=== PATIENT | male | born 2000 | race Caucasian/White ===

== ENCOUNTER 2020-03-17 03:46 | Emergency (ER) | payer OTHER, SELFPAY ==
--- NOTE | ~2020-03-17 | XR_ITS ---
XR chest 2V 03/17/2020 04:57 Indication: Shortness of breath Procedure: 2 view chest Comparison: No prior studies for comparison. Findings: Left lower lobe airspace disease, compatible with pneumonia. Cardiomegaly. Status post medi an sternotomy. Right lung is clear. No pleural effusion or pneumothorax. No acute osseous abnormality . Impression: 1: Left lower lobe airspace disease, compatible with pneumonia. 2: Cardiomegaly. Reviewed, dictated and finalized at location A. Impression: 1: Left lower lobe airspace disease, compatible with pneumonia. 2: Cardiomegaly.
[2020-03-17 03:49] VITALS: BP 140/67; PULSE 107; RESP 16; TEMP 36.4; O2SAT 100
--- NOTE | 2020-03-17 04:01 | ED.ANXIETY ---
HPI - Anxiety General Chief Complaint: Anxiety Stated Complaint: anxiety attack Time Seen by Provider: 03/17/20 04:01 History of Present Illness HPI narrative: 19 yo male with a h/o congenital aortic stenosis s/p repair presents to the ED for anxiety. History obtianed from the patient and his mother. She reports that he is very anxious and depressed. He reports that he always feels fatigued. Even walking accross the room makes him feel like he needs rest. Despite that whenever he does lie down his heart begins to race and he has to get up again. He has intermittent chest pain and SOB. He has a poor appetite. He saw his PCP yesterday and was prescribed prozac. He was feeling worse tonight than usual. Related Data Home Medications Medication Instructions Recorded Confirmed albuterol sulfate INHALATION QID 03/17/20 amlodipine 10 mg PO DAILY 03/17/20 fluoxetine 10 mg PO DAILY 03/17/20 omeprazole 40 mg PO DAILY 03/17/20 Allergies Allergy/AdvReac Type Severity Reaction Status Date / Time No Known Allergies Allergy Mild Verified 03/17/20 03:53 Review of Systems Review of Systems: All systems reviewed & are unremarkable except as noted in HPI and below Constitutional: Constitutional: Reports fatigue and Denies fever(s) ENT: Denies dizziness Cardiovascular: Cardiovascular: Reports chest pain and Reports rapid heart rate Respiratory: Respiratory: Reports cough and Reports dyspnea Gastrointestinal: Gastrointestinal: Denies abdominal pain and Denies nausea Neurologic: Denies dizziness and Denies weakness Psychiatric: Psychiatric: Reports anxiety and Reports depression PMFSH Past Medical History Medical History (Updated 03/18/20 @ 16:02 by Jesse Mata MD) Congenital aortic stenosis Social History Social History (Updated 03/18/20 @ 15:55 by Jesse Mata MD) Living arrangements: with family Exam Const: General: no acute distress, alert and ill appearing chronically Nutritional Appearance: well nourished Orientation/consciousness: patient oriented x3 HENMT: Head: normal to inspection Chest: Chest palpation & inspection: normal inspection of the chest Resp: Effort & Inspection: normal respiratory effort Auscultation: crackles on the left in the lower lung zhu Cardio: Rate: tachycardic Rhythm: regular rhythm GI: GI Palp: Yes Soft to palpation and No Tenderness to palpation present (GI) Skin: General skin exam: pallor Neuro: General: patient oriented x3, moves all extremities and no focal motor deficits Speech: normal speech Extrem: General: edema bilateral (2+ lower leg) Course Vital Signs Vital signs: Vital Signs Temperature 36.4 C L 03/17/20 03:49 Pulse Rate 107 H 03/17/20 03:49 Respiratory Rate 16 03/17/20 03:49 Blood Pressure 140/67 03/17/20 03:49 Pulse Oximetry 100 03/17/20 03:49 Temperature 36.4 C L 03/17/20 03:49 Pulse Rate 103 H 03/17/20 06:30 Respiratory Rate 35 H 03/17/20 06:30 Blood Pressure 128/64 03/17/20 06:30 Pulse Oximetry 100 03/17/20 06:30 MDM - Anxiety MDM Narrative Medical decision making narrative: History and physical concerning for a cardiac issue. Labs confirm this. Additionally he has a very elevated WBC count and hyponatremia. [facility]anfer arranged to [facility] his heart surgeon is. Lab Data Attestation: I reviewed the patient's lab results. Result diagrams: 03/17/20 04:40 03/17/20 04:40 Labs: Lab Results 03/17/20 03/17/20 03/17/20 Range/Units 04:40 04:40 04:40 WBC 17.3 H (4.5-10.0) K/mm3 RBC 5.18 (4.6-6.20) M/mm3 Hgb 14.9 (14.0-18.0) g/dL Hct 44.2 (42.0-52.0) % MCV 85.3 (80-100) fl MCH 28.8 (26-34) pg MCHC 33.7 (32-36) g/dl RDW 13.9 (11.5-14.5) % Plt Count 434 H (150-375) k/mm3 MPV 11.3 H (7.4-10.4) fl Immature Gran % (Auto) 0.5 (0-0.5) % Neut % (Auto) 75.9 H (45.5-73.1) % Lymph % (Auto) 14.0 L
--- NOTE | 2020-03-17 04:14 | ECG_ITS ---
Measurements Intervals [place] Rate: 102 P: 59 [place]: 159 QRS: 86 QRSD: 162 T: 263 QT: 392 QTc: 511 Interpretive Statements SINUS TACHYCARDIA LEFT BUNDLE BRANCH BLOCK ABNORMAL ECG Electronically Signed On 03-17-2020 7:04:53 CDT by John Packer D.O.
[2020-03-17 04:48] VITALS: BP 119/64; PULSE 104; RESP 27; O2SAT 98
[2020-03-17 04:51] LABS: Basophils Percent Auto 0.2 % (0.2-1.2); Eosinophils Percent Auto 0.1 % (0-4.4); Hematocrit 44.2 % (42.0-52.0); Hemoglobin 14.9 g/dL (14.0-18.0); Immature Granulocyte Absolute 0.09 K/mm3 (0.00-0.031); Immature Granulocyte Percent A 0.5 % (0-0.5); Lymphocytes Absolute Auto 2.43 K/mm3 (0.9-3.2); Mean Corpuscular HGB Conc 33.7 g/dl (32-36); Mean Corpuscular Hemoglobin 28.8 pg (26-34); Mean Corpuscular Volume 85.3 fl (80-100); Mean Platelet Volume 11.3 fl (7.4-10.4); Monocytes Absolute Auto 1.6 K/mm3 (0.1-0.6); Monocytes Percent Auto 9.3 % (2.6-8.5); Neutrophils Absolute Auto 13.1 K/mm3 (1.3-6.7); Neutrophils Percent Auto 75.9 % (45.5-73.1); Platelet Count Result 434 k/mm3 (150-375); Red Blood Count 5.18 M/mm3 (4.6-6.20); Red Cell Distribution Width 13.9 % (11.5-14.5); White Blood Count 17.3 K/mm3 (4.5-10.0)
[2020-03-17 05:00] VITALS: BP 118/64; PULSE 106; RESP 30; O2SAT 100
[2020-03-17 05:00] LABS: INR 2.1; Prothrombin Time 22.7 Seconds (11.1-14.7)
[2020-03-17 05:01] LABS: Partial Thromboplastin Time 29.5 SECONDS (22.3-36.8)
[2020-03-17 05:07] LABS: Anion Gap 14 mmol/L (8-16); Blood Urea Nitrogen 41 mg/dL (9-20); Carbon Dioxide 20 mmol/L (22-30); Chloride 93 mmol/L (98-107); Estimated CRCL calculation 79 ml/min; Estimated Glomerular Filt Rate 60; Glucose 134 mg/dL (75-110); Sodium 127 mmol/L (137-145)
[2020-03-17 05:22] LABS: NT Pro B Type Natriuretic Pept 21500 PG/ML (5-100); Troponin I 0.081 ng/mL (0.000-0.034)
[2020-03-17 05:30] VITALS: BP 124/64; PULSE 102; RESP 33; O2SAT 100
[2020-03-17 06:30] VITALS: BP 128/64; PULSE 103; RESP 35; O2SAT 100
== END 2020-03-17 06:50 | disposition designated cancer center or children's hospital (05) ==
LOC: ANHED 04:33
PROVIDERS: Emergency Provider Emergency Medicine; PCP Internal Medicine
DX: I50.9 Heart failure, unspecified (principal); Z87.74 Personal history of (corrected) congenital malformations of heart and circulatory system; E87.1 Hypo-osmolality and hyponatremia; D72.829 Elevated white blood cell count, unspecified; F41.9 Anxiety disorder, unspecified; I51.7 Cardiomegaly; R91.8 Other nonspecific abnormal finding of lung field; R00.0 Tachycardia, unspecified; I44.7 Left bundle-branch block, unspecified
CPT/HCPCS: 36415; 71046; 80048; 83880; 84484; 85025; 85610; 85730; 93005; 99285

== ENCOUNTER 2020-04-12 15:19 | Outpatient (RCR) | payer OTHER, SELFPAY ==
[2020-04-12 16:08] VITALS: PULSE 93
--- NOTE | 2020-04-18 18:38 | PCCPR ---
Spoke with mom who states Dixie is not wanting to come to cardiac rehab. She states they go back to the doctor Saturday in [place] and she will let us know by his plan.
== END 2020-05-20 15:53 | disposition home or self-care (01) ==
LOC: ANHCPREHAB 15:19
DX: I50.89 Other heart failure (principal)
CPT/HCPCS: 93798

== ENCOUNTER 2022-12-19 08:00 | Outpatient (RCR) | payer OTHER, SELFPAY ==
--- NOTE | ~2022-12-19 | XR_ITS ---
EXAMINATION: XR chest 1V employee DATE: 12/19/2022 19:47 INDICATION: Employee health examination of the chest TECHNIQUE: PA chest FINDINGS:Comparison to 03/17/2020 There is no focal consolidation, pleural effusion, or pneumothorax. The pulmonary vasculature is with in normal limits. The cardiomediastinal silhouette is normal. There are median sternotomy wires. IMPRESSION: 1. No acute cardiopulmonary disease. Reviewed, dictated and finalized at location L.
[2022-12-20 13:48] LABS: Hepatitis B Surface Anti Res Negative; Rubella IgG Antibody 63.8 IU/ML
[2022-12-21 01:18] LABS: Urine Cotinine NEGATIVE
[2022-12-21 16:08] LABS: NIL 0.02; Quantiferon TB Plus, 1T Negative
[2022-12-21 16:09] LABS: TB1-NIL 0.08; TB2-NIL 0.09
== END 2022-12-31 10:01 | disposition home or self-care (01) ==
LOC: ANHEH 08:00
DX: Z02.1 Encounter for pre-employment examination (principal)
CPT/HCPCS: 80307; 86480; 86706; 86735; 86762; 86765; 86787